=== PATIENT | male | born 1955 | race Caucasian/White ===

== ENCOUNTER 2019-02-22 20:10 | Inpatient (IN) | payer MEDICARE, MEDICAID ==
[~2019-02-22] VITALS: Ht 177.8 cm; Wt 100.0 kg
[2019-02-22] MEDS ORDERED: normal saline 1000ml 1,000 ML IV ONE (20:25)
[2019-02-22] MEDS: ketorolac tromethamine 15mg/ml inj. IV ONE ×2 (20:25→20:39)
[2019-02-22] MEDS ORDERED: ketorolac tromethamine 15mg/ml inj. IV ONE (20:40)
[2019-02-22] MEDS ORDERED: ondansetron/PF 4mg/2ml inj IV ONE (20:40)
[2019-02-22] MEDS ORDERED: morphine 4 MG/ML inj SYRINge IV PRN (20:40)
[2019-02-22 20:47] LABS: BASOPHILS # (AUTO) 0.1 X10'3 (0-0.2); BASOPHILS % (AUTO) 0.7 % (0-1); EOSINOPHILS # (AUTO) 0.2 X10'3 (0-0.9); EOSINOPHILS % (AUTO) 1.6 % (0-6); HEMATOCRIT 47.8 % (42.0-52.0); HEMOGLOBIN 16.2 g/dl (14.0-17.9); LYMPHOCYTES # (AUTO) 4.5 X10'3 (1.1-4.8); LYMPHOCYTES % (AUTO) 31.9 % (21-51); MEAN CORPUSCULAR HEMOGLOBIN 30.9 PG (27.0-31.0); MEAN CORPUSCULAR HGB CONC 33.9 g/dL (33.0-36.5); MEAN CORPUSCULAR VOLUME 91.3 FL (78-98); MONOCYTES # (AUTO) 1.4 X10'3 (0-0.9); NEUTROPHILS # (AUTO) 7.9 X10'3 (1.8-7.7); NEUTROPHILS % (AUTO) 55.8 % (42-75); PLATELET COUNT 215 X10'3 (140-440); RED BLOOD COUNT 5.24 X10'6 (4.70-6.10); RED CELL DISTRIBUTION WIDTH 13.3 % (11.5-14.5); WHITE BLOOD COUNT 14.1 X10'3 (4.5-11.0)
[2019-02-22 20:55] LABS: ALANINE AMINOTRANSFERASE 62 U/L (12-78); ALBUMIN 4.5 G/DL (3.4-5.0); ALBUMIN/GLOBULIN RATIO 1.3 (1.1-1.5); ALKALINE PHOSPHATASE 102 IU/L (46-116); ANION GAP 10 (8-16); ASPARTATE AMINO TRANSFERASE 46 U/L (10-37); BILIRUBIN,TOTAL 0.3 MG/DL (0.1-1.0); BLOOD UREA NITROGEN 27 MG/DL (7-18); BUN/CREATININE RATIO 15.9 (5.4-32.0); CALCIUM 9.7 MG/DL (8.5-10.1); CHLORIDE 106 MMOL/L (99-107); GLUCOSE 101 MG/DL (70-104); POTASSIUM 4.3 MMOL/L (3.5-5.1); SODIUM 142 MMOL/L (135-145); TOTAL CARBON DIOXIDE 25.6 MMOL/L (24-32); eGFR 41 ML/MIN
--- NOTE | 2019-02-22 21:25 | NUR ---
pt moved to an CELSO level II to an CELSO level III r/t decrease in pain
--- NOTE | 2019-02-22 22:00 | NUR ---
gave him water to drink so he can give a ua he is feeling so much better, relaxed, smiling. When he came into his room he was pacing and not able to sit.
[2019-02-22 22:42] LABS: COLOR,URINE YELLOW (Yellow); GLUCOSE, URINE NEGATIVE (Neg); KETONES,URINE NEGATIVE (Neg); LEUKOCYTE ESTERASE ,URINE NEGATIVE (Neg); NITRITES, URINE NEGATIVE (Neg); OCCULT BLOOD,URINE LARGE (Neg); PH,URINE 5.5 (4.8-8.0); PROTEIN,URINE 30 mg/dl (Neg); UROBILINOGEN,URINE 0.2 E.U/dL (0.2-1.0)
[2019-02-22 22:48] LABS: CLARITY,URINE SLIGHTLY CLOUDY (Clear); UA COLLECTION TYPE CLN CATCH MIDSTREAM
[2019-02-22 22:50] LABS: BACTERIA,URINE NONE SEEN /HPF (Neg); CAL OXALATE CRYSTALS 2+ /HPF (NEGATIVE); MUCUS STRANDS MODERATE /LPF (Neg); SQUAMOUS EPITHELIAL CELL,UR FEW /LPF (FEW); WBC,URINE NONE SEEN /HPF (0-4)
[2019-02-22] MEDS ORDERED: dextrose ORAL solution 15 GM/59 ML bottle PO PRN ×2 (23:20)
[2019-02-22] MEDS ORDERED: magnesium 2GM in 50ml NS 50 ML IV PRN (23:20)
[2019-02-22] MEDS ORDERED: morphine 2 MG/ML inj. syringe IV PRN (23:20)
[2019-02-22] MEDS ORDERED: glucagon, human recombinant 1mg kit SUBCUT PRN (23:20)
[2019-02-22] MEDS ORDERED: mag hydrox/Alum hydrox/simeth 30ml oral suspension PO PRN (23:20)
[2019-02-22] MEDS ORDERED: MESSAGE TO PHARMACY PO ONE (23:20)
[2019-02-22] MEDS ORDERED: mag hydrox/Alum hydrox/simeth 30ml oral suspension PO ONE (23:20)
[2019-02-22] MEDS ORDERED: potassium CL 10mEq/100ml bag 100 ML IV PRN ×2 (23:20)
[2019-02-22] MEDS ORDERED: potassium Cl 20 mEq SR tablet PO PRN ×2 (23:20)
[2019-02-22] MEDS ORDERED: dextrose 50%-water 50ml dispensing syringe IV PRN ×2 (23:20)
[2019-02-22] MEDS ORDERED: magnesium hydroxide 30ml (MOM) UD suspension PO PRN (23:20)
[2019-02-22] MEDS ORDERED: acetaminophen 325mg tablet PO PRN (23:20)
[2019-02-22] MEDS ORDERED: magnesium 4gm in 100ml NS 100 ML IV PRN (23:20)
[2019-02-22] MEDS ORDERED: insulin Lispro (HumaLOG) vial - multi-dose SQ SCH (23:20)
[2019-02-22] MEDS ORDERED: OLAN5TAB26 PO (23:59)
[2019-02-22] MEDS ORDERED: CLON0.5T4 PO (23:59)
[2019-02-23] VITALS (15 sets, daily range): BP systolic 105–153; BP diastolic 54–97
[2019-02-23] MEDS ORDERED: LISI10TA4 PO (00:02)
[2019-02-23] MEDS ORDERED: LAMO100T2 PO (00:02)
[2019-02-23] MEDS ORDERED: GABA600T13 PO ×3 (00:02→09:00)
[2019-02-23] MEDS ORDERED: ZOLP10TA5 PO (00:02)
[2019-02-23] MEDS ORDERED: LEVO125T8 PO (00:02)
[2019-02-23] MEDS ORDERED: BUPR300T54 PO ×2 (00:02→00:04)
[2019-02-23] MEDS ORDERED: METH500T6 PO (00:04)
[2019-02-23 00:15] LABS: HEMOGLOBIN A1C 6.1 % (4.5-6.2)
--- NOTE | 2019-02-23 00:28 | NUR ---
0010: Got report from KYLIE Pollack RN. 0020:Patient arrived via wheelchair, nursing supervisor computer operations wheeled patient to unit. Patient ambulates and is ALO4. VSS taken, Nasal swab done. Patient requesting shower before he gets into bed because he came from work and is dirty. He is in shower now.
[2019-02-23] MEDS: normal saline 1000ml 1,000 ML IV SCH ×4 (00:54→23:59)
[2019-02-23] MEDS: zolpidem 5mg tablet PO PRN (01:18)
[2019-02-23] MEDS ORDERED: non-formulary drug (Zolpidem Tartrate* (Ambien*) 1 TAB) PO SCH (01:35)
[2019-02-23] MEDS: oxyCODONE/APAP 10/325mg tablet PO SCH ×6 (04:25→23:15)
[2019-02-23] MEDS: ondansetron/PF 4mg/2ml inj IV PRN (04:28)
[2019-02-23] MEDS: morphine 2 MG/ML inj. syringe IV PRN ×2 (05:35→21:24)
--- NOTE | 2019-02-23 06:13 | NUR ---
Problems reprioritized. Patient report given, questions answered & plan of care reviewed with JESSIE Zuñiga. Addendum: 02/23/19 at 0640 by Bruno Tello RN report given to JESSIE Reaves
[2019-02-23 06:26] LABS: BASOPHILS # (AUTO) 0.1 X10'3 (0-0.2); BASOPHILS % (AUTO) 0.7 % (0-1); EOSINOPHILS # (AUTO) 0.2 X10'3 (0-0.9); EOSINOPHILS % (AUTO) 2.4 % (0-6); HEMOGLOBIN 14.3 g/dl (14.0-17.9); LYMPHOCYTES # (AUTO) 3.5 X10'3 (1.1-4.8); LYMPHOCYTES % (AUTO) 37.8 % (21-51); MEAN CORPUSCULAR HGB CONC 34.8 g/dL (33.0-36.5); MEAN CORPUSCULAR VOLUME 91.8 FL (78-98); MONOCYTES # (AUTO) 1.1 X10'3 (0-0.9); MONOCYTES % (AUTO) 11.6 % (2-12); NEUTROPHILS # (AUTO) 4.4 X10'3 (1.8-7.7); NEUTROPHILS % (AUTO) 47.5 % (42-75); PLATELET COUNT 165 X10'3 (140-440); RED BLOOD COUNT 4.46 X10'6 (4.70-6.10); RED CELL DISTRIBUTION WIDTH 13.2 % (11.5-14.5); WHITE BLOOD COUNT 9.2 X10'3 (4.5-11.0)
[2019-02-23 06:50] LABS: ALANINE AMINOTRANSFERASE 46 U/L (12-78); ALBUMIN 3.5 G/DL (3.4-5.0); ALBUMIN/GLOBULIN RATIO 1.2 (1.1-1.5); ALKALINE PHOSPHATASE 76 IU/L (46-116); ANION GAP 9 (8-16); ASPARTATE AMINO TRANSFERASE 31 U/L (10-37); BILIRUBIN,TOTAL 0.7 MG/DL (0.1-1.0); BLOOD UREA NITROGEN 27 MG/DL (7-18); BUN/CREATININE RATIO 18.8 (5.4-32.0); CALCIUM 8.4 MG/DL (8.5-10.1); CHLORIDE 107 MMOL/L (99-107); CREATININE 1.44 MG/DL (0.60-1.10); GLUCOSE 101 MG/DL (70-104); POTASSIUM 3.7 MMOL/L (3.5-5.1); SODIUM 142 MMOL/L (135-145); TOTAL CARBON DIOXIDE 25.6 MMOL/L (24-32); TOTAL PROTEIN 6.5 G/DL (6.4-8.2); eGFR 50 ML/MIN
--- NOTE | 2019-02-23 06:57 | NUR ---
Patient in room [facility]. I have received report from Bruno ROMAN and had the opportunity to ask questions and assume patient care.
[2019-02-23] MEDS ORDERED: buPROPion SR 150mg tablet PO SCH (08:00)
[2019-02-23] MEDS: enoxaparin 40mg/0.4ml syringe SQ SCH (08:00)
[2019-02-23] MEDS: K and/or MAG REPLACEMENT MC SCH ×2 (08:00→20:00)
[2019-02-23] MEDS ORDERED: gabapentin 300mg capsule PO SCH ×2 (08:00→12:29)
[2019-02-23] MEDS ORDERED: gabapentin 300mg capsule PO PRN (08:00)
[2019-02-23] MEDS ORDERED: non-formulary drug (Bupropion HCl (Bupropion Xl) 1 TAB) PO SCH (08:00)
[2019-02-23] MEDS: lamoTRIgine 100mg tablet PO SCH ×2 (08:06→23:13)
[2019-02-23] MEDS: levoTHYROXINE 125mcg tablet PO SCH (08:07)
[2019-02-23] MEDS: cyclobenzaprine 10mg tablet PO SCH ×3 (08:12→23:15)
[2019-02-23] MEDS: lisinopril 10 MG tablet PO SCH (08:13)
[2019-02-23] MEDS ORDERED: normal saline 1000ml 1,000 ML IV ONE (08:45)
--- NOTE | 2019-02-23 10:27 | NUR ---
DM consult: Pt with A1c 6.1, DM education not warranted at this time. Will continue to follow. Addendum: 02/23/19 at [address] Amended: Links added.
[2019-02-23 10:40] LABS: PARTIAL THROMBOPLASTIN TIME 27 SECONDS (22-32)
--- NOTE | 2019-02-23 11:13 | NUR ---
PAGER ID: [phone] MESSAGE: Re: Delroy Danielle [id number] Gabapentin needs to be continued please. Pharmacy has called and needs you to address it first. Patient is requesting it as well. Gabapentin is taken 1200mg BID & 600mg afternoon per patient. Irma 2002
[2019-02-23] MEDS ORDERED: ePHEDrine 50MG/ML INJ. ONE (12:36)
[2019-02-23] MEDS ORDERED: sevoflurane 250ml liquid IH ONE (12:36)
[2019-02-23] MEDS ORDERED: ringers solution, lacted 1,000 ML IV SCH ×2 (14:48→18:28)
[2019-02-23] MEDS ORDERED: morphine 4 MG/ML inj SYRINge IV PRN ×4 (14:50→18:30)
[2019-02-23] MEDS ORDERED: labetalol 20mg/4ml (5mg/ml) syringe IV PRN (14:50)
[2019-02-23] MEDS ORDERED: ondansetron/PF 4mg/2ml inj IV PRN ×2 (14:50→18:30)
[2019-02-23] MEDS ORDERED: hydrALAZINE 20mg/ml inj. IV PRN (14:50)
[2019-02-23] MEDS ORDERED: fentaNYL/PF 50MCG/1 ML 2ML syringe IV PRN ×2 (14:50)
[2019-02-23] MEDS ORDERED: iohexol 300 MG/1 ML 50ml polymer ONE (16:46)
[2019-02-23] MEDS ORDERED: midazolam 2 mg/2 ml injection ONE (17:32)
[2019-02-23] MEDS ORDERED: fentaNYL /PF 50mcg/ml 5ml ampule ONE (17:32)
[2019-02-23] MEDS ORDERED: LIDOcaine 2% (20mg/ml) 5ml vial ONE (17:34)
[2019-02-23] MEDS ORDERED: rocuronium 10mg/ml inj IV ONE (17:34)
[2019-02-23] MEDS ORDERED: propofol inj 20 ML IV ONE (17:34)
[2019-02-23] MEDS ORDERED: ceFAZolin 1000mg inj ONE (18:19)
[2019-02-23] MEDS ORDERED: meperidine/PF 25mg/ml syringe IV PRN ×3 (18:30)
[2019-02-23] MEDS ORDERED: proCHLORperazine 10 MG/2 ml inj IV PRN (18:30)
--- NOTE | 2019-02-23 18:53 | NUR ---
Problems reprioritized. Patient report given, questions answered & plan of care reviewed with Selam ROMAN. Patient left the floor for surgery at 1635.
[2019-02-23] MEDS ORDERED: glycopyrrolate 0.2mg/ml inj ONE (19:02)
[2019-02-23] MEDS ORDERED: dexamethasone sod phosphate 4mg/ml inj. ONE (19:02)
[2019-02-23] MEDS ORDERED: ondansetron/PF 4mg/2ml inj ONE (19:02)
[2019-02-23] MEDS ORDERED: neostigmine methylsulfate 1 MG/ML 10ml vial ONE (19:02)
--- NOTE | 2019-02-23 19:20 | NUR ---
Received from OR via BED , accompanied by Anesthesiologist and report given by Anesthesiolgist. PATIENT WAKING UP, DENIES PAIN, V/S WNL, NEUROVASCULAR CHECKS INTACT,SCD ON. 20G PIV TO LUE. CYSTOSCOPY NO DRESSINGS NO DRAINAGE
--- NOTE | 2019-02-23 19:50 | NUR ---
Report received from Jacob clement RN.
--- NOTE | 2019-02-23 20:00 | NUR ---
Patient arrived to floor via bed. Alert and oriented, states pain level coming down to 3/10 and in no distress. Patient stood up to use urinal, however, no urine at this time. Patients gown was wet, most have been inc (small) ,cleaned up and back into bed. Post op VS initiated.
--- NOTE | 2019-02-23 20:10 | NUR ---
PATIENT A&OX4 , DENIES PAIN, V/S WNL, NEUROVASCULAR CHECKS, INTACT,SCD ON. 20G PIV TO LUE. CYSTOSCOPY NO DRESSINGS, NO DRAINAGE. PATIENT TAKEN TO SURGICAL ROOM AND HOOKED UP TO MONITORS IN ROOM AND PULSE OX, CALL LIGHT GIVEN TO PATIENT AND Problems reprioritized. Patient report given, questions answered & plan of care reviewed AND RECIEVING BLUNGER HAS TAKEN OVER PATIENT CARE.
[2019-02-23] MEDS ORDERED: OLANZAPINE 5 MG TABLET PO SCH ×2 (21:00→23:50)
[2019-02-23] MEDS ORDERED: insulin glargine (Lantus) pen - multi-dose SQ SCH (21:00)
[2019-02-23] MEDS ORDERED: gabapentin 400mg capsule PO SCH (22:50)
--- NOTE | 2019-02-23 23:20 | NUR ---
The 2315 medication was scanned on the percocet but accidently not saved.
[2019-02-23] MEDS ORDERED: clonazePAM 0.5mg tablet PO PRN (23:45)
[2019-02-24] VITALS: BP_SYST 130; BP_SYST 132; BP_DIAS 70; BP_DIAS 86
[2019-02-24] MEDS: zolpidem 5mg tablet PO PRN (00:08)
[2019-02-24] MEDS: gabapentin 300mg capsule PO SCH ×2 (00:27→08:37)
[2019-02-24] MEDS: morphine 2 MG/ML inj. syringe IV PRN ×2 (02:58→11:06)
[2019-02-24] MEDS: oxyCODONE/APAP 10/325mg tablet PO SCH ×2 (03:55→08:38)
[2019-02-24] MEDS: ondansetron/PF 4mg/2ml inj IV PRN (04:01)
[2019-02-24 06:24] LABS: BASOPHILS % (AUTO) 0.1 % (0-1); EOSINOPHILS % (AUTO) 0 % (0-6); HEMATOCRIT 41.3 % (42.0-52.0); LYMPHOCYTES # (AUTO) 1.1 X10'3 (1.1-4.8); LYMPHOCYTES % (AUTO) 12.6 % (21-51); MEAN CORPUSCULAR HEMOGLOBIN 31.3 PG (27.0-31.0); MEAN CORPUSCULAR HGB CONC 33.9 g/dL (33.0-36.5); MEAN CORPUSCULAR VOLUME 92.3 FL (78-98); MEAN PLATELET VOLUME 9.1 FL (7.4-10.4); MONOCYTES # (AUTO) 0.4 X10'3 (0-0.9); MONOCYTES % (AUTO) 4.5 % (2-12); NEUTROPHILS # (AUTO) 7.3 X10'3 (1.8-7.7); NEUTROPHILS % (AUTO) 82.8 % (42-75); PLATELET COUNT 168 X10'3 (140-440); RED BLOOD COUNT 4.48 X10'6 (4.70-6.10); RED CELL DISTRIBUTION WIDTH 13.1 % (11.5-14.5); WHITE BLOOD COUNT 8.8 X10'3 (4.5-11.0)
--- NOTE | 2019-02-24 06:30 | NUR ---
Problems reprioritized. Patient report given, questions answered & plan of care reviewed with Rosaline ROMAN and isai student..
--- NOTE | 2019-02-24 06:40 | NUR ---
OPER NOC SHIFT NURSE, POST OP V/S WERE NOT DONE LAST NIGHT.
[2019-02-24 07:00] VITALS: BP 118/60
--- NOTE | 2019-02-24 07:01 | NUR ---
RECEIVED REPORT FROM TRINY ROMAN
[2019-02-24] MEDS: enoxaparin 40mg/0.4ml syringe SQ SCH (07:08)
--- NOTE | 2019-02-24 07:08 | NUR ---
PER DR DELCID NOTES, Pt. TO HAVE SRUGERY THIS AM. WILL HOLD HEPARIN UNTIL I SPEAK WITH HER.
[2019-02-24] MEDS ORDERED: levoFLOXACIN-Levaquin 750MG/D5 150 ML IV SCH (08:00)
[2019-02-24] MEDS ORDERED: BUPROPION 300 MG PO SCH (08:00)
[2019-02-24] MEDS: cyclobenzaprine 10mg tablet PO SCH (08:00)
[2019-02-24] MEDS ORDERED: buPROPion SR 150mg tablet PO SCH (08:00)
[2019-02-24] MEDS: K and/or MAG REPLACEMENT MC SCH (08:00)
[2019-02-24 08:23] LABS: ALANINE AMINOTRANSFERASE 41 U/L (12-78); ALBUMIN 3.5 G/DL (3.4-5.0); ALBUMIN/GLOBULIN RATIO 1.1 (1.1-1.5); ALKALINE PHOSPHATASE 71 IU/L (46-116); ANION GAP 9 (8-16); ASPARTATE AMINO TRANSFERASE 28 U/L (10-37); BILIRUBIN,TOTAL 0.5 MG/DL (0.1-1.0); BLOOD UREA NITROGEN 18 MG/DL (7-18); BUN/CREATININE RATIO 14.9 (5.4-32.0); CALCIUM 8.3 MG/DL (8.5-10.1); CHLORIDE 110 MMOL/L (99-107); CREATININE 1.21 MG/DL (0.60-1.10); GLUCOSE 135 MG/DL (70-104); MAGNESIUM 2.2 MG/DL (1.5-2.4); POTASSIUM 4.6 MMOL/L (3.5-5.1); SODIUM 141 MMOL/L (135-145); TOTAL CARBON DIOXIDE 22.2 MMOL/L (24-32); TOTAL PROTEIN 6.6 G/DL (6.4-8.2); eGFR 61 ML/MIN
[2019-02-24] MEDS: lamoTRIgine 100mg tablet PO SCH (08:36)
[2019-02-24 08:37] VITALS: BP_SYST 118
[2019-02-24] MEDS: levoTHYROXINE 125mcg tablet PO SCH (08:37)
[2019-02-24] MEDS: lisinopril 10 MG tablet PO SCH (08:37)
[2019-02-24] MEDS ORDERED: LEVO500T2 PO (10:16)
[2019-02-24] MEDS ORDERED: gabapentin 300mg capsule PO SCH ×2 (12:00)
== END 2019-02-24 11:15 | disposition home or self-care (01) | DRG 661 ==
LOC: ER 20:10 → ED HOLD 02-23 00:01 → SUR 3N 02-23 00:23
PROVIDERS: ADMIT Family Medicine; ATTEND Internal Medicine
PROC: 0T778DZ Dilation of Left Ureter with Intraluminal Device, Via Natural or Artificial Opening Endoscopic (ICD-10-PCS; 2019-02-23)
PROC: BT1F1ZZ Fluoroscopy of Left Kidney, Ureter and Bladder using Low Osmolar Contrast (ICD-10-PCS; 2019-02-23)
PROC: 0TC48ZZ Extirpation of Matter from Left Kidney Pelvis, Via Natural or Artificial Opening Endoscopic (ICD-10-PCS; principal; 2019-02-23 17:36)
DX: N13.2 Hydronephrosis with renal and ureteral calculous obstruction (principal); N17.9 Acute kidney failure, unspecified; D72.829 Elevated white blood cell count, unspecified; E03.9 Hypothyroidism, unspecified; E11.9 Type 2 diabetes mellitus without complications; G89.29 Other chronic pain; E66.9 Obesity, unspecified; I10 Essential (primary) hypertension; F32.9 Major depressive disorder, single episode, unspecified; F41.9 Anxiety disorder, unspecified; M50.30 Other cervical disc degeneration, unspecified cervical region; M54.9 Dorsalgia, unspecified; Z68.31 Body mass index [BMI] 31.0-31.9, adult; Z79.899 Other long term (current) drug therapy
CPT/HCPCS: 36415; 71045; 74018; 74176; 80053; 81001; 82948; 83036; 83735; 85025; 85610; 85730; 87081; 88300; 93005; 96361; 96374; 96375; 99285; A4402; A4618; A7000; C1758; C1769; C2617; G0378; J0690; J1100; J1650; J1815; J1885; J1956; J2001; J2175; J2250; J2270; J2405; J2704; J2710; J3010; J3490; J7030; J7120; Q9967

== ENCOUNTER 2023-11-11 08:31 | Outpatient (CLI) | payer MEDICARE, MEDICAID ==
[2023-11-11] VITALS (22 sets, daily range): BP systolic 63–118; BP diastolic 43–80; PULSE 80–108
[~2023-11-11 08:31] MED LIST: BUPR-565 PO; CLON0.5T4 PO; GABA600T13 PO; LAMO100T2 PO; LEVO125T8 PO; LISI10TA27 PO; METH-797 PO; OLAN5TAB75 PO; ZOLP10TA5 PO
== END 2023-11-11 23:59 | disposition home or self-care (01) ==
LOC: CARD DIAG 08:31
PROVIDERS: ATTEND Internal Medicine Interventional Cardiology
DX: R55 Syncope and collapse (principal)
CPT/HCPCS: 93660

== ENCOUNTER 2024-07-11 20:02 | Emergency (ER) | payer MEDICARE, MEDICAID ==
[~2024-07-11] VITALS: Ht 177.8 cm; Wt 89.5 kg
[~2024-07-11 20:02] MED LIST changes: +BUPR-557 PO; -BUPR-565 PO; +GABA-1405 PO; -GABA600T13 PO
[2024-07-11 20:46] LABS: BASOPHILS % (AUTO) 0.3 % (0-1); EOSINOPHILS # (AUTO) 0.2 X10'3 (0-0.9); EOSINOPHILS % (AUTO) 2.4 % (0-6); HEMATOCRIT 37.3 % (42.0-52.0); HEMOGLOBIN 12.1 g/dl (14.0-17.9); LYMPHOCYTES # (AUTO) 2.8 X10'3 (1.1-4.8); LYMPHOCYTES % (AUTO) 37.5 % (21-51); MEAN CORPUSCULAR HEMOGLOBIN 28.8 PG (27.0-31.0); MEAN CORPUSCULAR HGB CONC 32.4 g/dL (33.0-36.5); MEAN CORPUSCULAR VOLUME 88.8 FL (78-98); MEAN PLATELET VOLUME 7.6 FL (7.4-10.4); MONOCYTES # (AUTO) 0.8 X10'3 (0-0.9); MONOCYTES % (AUTO) 10.3 % (2-12); NEUTROPHILS # (AUTO) 3.7 X10'3 (1.8-7.7); NEUTROPHILS % (AUTO) 49.5 % (42-75); PLATELET COUNT 237 X10'3 (140-440); RED CELL DISTRIBUTION WIDTH 14.3 % (11.5-14.5); WHITE BLOOD COUNT 7.4 X10'3 (4.5-11.0)
[2024-07-11 21:02] LABS: ALANINE AMINOTRANSFERASE 21 U/L (12-78); ALBUMIN 3.5 G/DL (3.4-5.0); ALKALINE PHOSPHATASE 122 IU/L (46-116); ANION GAP 5 (8-16); ASPARTATE AMINO TRANSFERASE 19 U/L (10-37); BILIRUBIN,TOTAL 0.2 MG/DL (0.1-1.0); BLOOD UREA NITROGEN 15 MG/DL (7-18); BUN/CREATININE RATIO 14.4 (10.0-20.0); CALCIUM 9.1 MG/DL (8.5-10.1); CHLORIDE 105 MMOL/L (99-107); CREATININE 1.04 MG/DL (0.60-1.10); GLUCOSE 103 MG/DL (70-104); LIPASE 44 U/L (16-77); POTASSIUM 4.7 MMOL/L (3.5-5.1); SODIUM 142 MMOL/L (135-145); TOTAL CARBON DIOXIDE 31.7 MMOL/L (24-32); TOTAL PROTEIN 6.9 G/DL (6.4-8.2); eCRCL 72 ML/MIN; eGFR 71 ML/MIN
[2024-07-11] MEDS: ondansetron/PF 4mg/2ml inj IV ONE (21:56)
[2024-07-11] MEDS: morphine 4 MG/ML inj SYRINge IV ONE (21:58)
[2024-07-11] MEDS: ketorolac trometh 15mg/ml vial 15 MG/ML ML IV ONE (22:00)
[2024-07-11 22:30] LABS: BILIRUBIN,URINE NEGATIVE (Neg); CLARITY,URINE CLEAR (Clear); COLOR,URINE YELLOW (Yellow); GLUCOSE, URINE NEGATIVE (Neg); KETONES,URINE NEGATIVE (Neg); LEUKOCYTE ESTERASE ,URINE NEGATIVE (Neg); NITRITES, URINE NEGATIVE (Neg); OCCULT BLOOD,URINE NEGATIVE (Neg); PROTEIN,URINE NEGATIVE (Neg); UROBILINOGEN,URINE 0.2 E.U/dL (0.2-1.0)
[2024-07-11 22:39] LABS: UA COLLECTION TYPE NON-SPECIFIED
[2024-07-11] MEDS ORDERED: KETO10TA2 PO (23:08)
[2024-07-11 23:19] VITALS: BP 123/69; PULSE 79; RESP 16; TEMP 98.2; O2SAT 95
== END 2024-07-11 23:24 | disposition home or self-care (01) ==
LOC: ER 20:03
DX: N23 Unspecified renal colic (principal); E11.9 Type 2 diabetes mellitus without complications; I10 Essential (primary) hypertension; Z87.442 Personal history of urinary calculi
CPT/HCPCS: 36415; 80053; 81003; 83690; 85025; 96374; 96375; 99284; J1885; J2270; J2405; J7030